=== PATIENT | female | born 1965 | race Caucasian/White ===

== ENCOUNTER 2020-09-10 02:30 | Observation (INO) | payer OTHER, SELFPAY ==
[~2020-09-10] VITALS: Ht 165.1 cm; Wt 70.8 kg
[2020-09-10 02:30] VITALS: BP_SYST 207
[2020-09-10] MEDS ORDERED: hydrALAZINE HCL 20 MG/ML VIAL IVP ONE (02:45)
[2020-09-10] MEDS ORDERED: MORPHINE 2 MG/ML INJ. SYRINGE ONE (02:54)
[2020-09-10] MEDS ORDERED: ONDANSETRON HCL 4 MG/2 ML VIAL ONE (02:56)
[2020-09-10] MEDS ORDERED: MORPHINE 4 MG INJ. 4 MG/ML VIAL IVP ONE (03:00)
[2020-09-10] MEDS ORDERED: KETOROLAC TROMETHAMINE 30 MG VIAL ONE (03:15)
[2020-09-10] MEDS ORDERED: KETOROLAC TROMETHAMINE 30 MG VIAL IVP ONE (03:15)
[2020-09-10] MEDS ORDERED: NACL 0.9% 1,000 ML IV ONE (03:15)
[2020-09-10] MEDS ORDERED: ONDANSETRON HCL 4 MG/2 ML VIAL IVP ONE (03:15)
[2020-09-10 03:20] LABS: BASOPHILS # (AUTO) 0.1 K/uL (0.0-0.2); BASOPHILS % (AUTO) 0.9 % (0.0-2.0); EOSINOPHILS # (AUTO) 0.1 K/uL (0.0-0.4); EOSINOPHILS % (AUTO) 1.6 % (0.0-4.0); HEMOGLOBIN 13.6 g/dL (12.0-16.0); LYMPHOCYTES # (AUTO) 1.8 K/uL (1.0-5.5); LYMPHOCYTES % (AUTO) 25.2 % (20.5-51.5); MEAN CORPUSCULAR HEMOGLOBIN 30 pg (27-31); MEAN CORPUSCULAR HGB CONC 33 % (32-36); MEAN CORPUSCULAR VOLUME 91 fL (79.0-98.0); MONOCYTES # (AUTO) 0.4 K/uL (0.0-1.0); MONOCYTES % (AUTO) 5.8 % (1.7-9.3); NEUTROPHILS # (AUTO) 4.7 K/uL (1.8-7.7); NEUTROPHILS % (AUTO) 66.5 % (40.0-70.0); PLATELET COUNT (AUTO) 278 K/uL (130-430); RED BLOOD CELL COUNT(AUTO) 4.51 MIL/uL (4.2-6.2); RED CELL DISTRIBUTION WIDTH 13.3 % (9.0-15.0); WHITE BLOOD COUNT (AUTO) 7.1 K/uL (4.8-10.8)
[2020-09-10 03:27] LABS: INR 0.9 (0.8-1.2); PROTHROMBIN TIME 9.3 SECS (9.5-12.5)
[2020-09-10 03:30] LABS: ALBUMIN 3.8 g/dL (3.4-4.8); CALCIUM 9.1 mg/dL (8.4-11.0); CREATININE 0.89 mg/dL (0.55-1.30); POTASSIUM 3.3 mmol/L (3.5-5.1); TOTAL BILIRUBIN 0.5 mg/dL (0.0-1.0)
[2020-09-10] MEDS ORDERED: ACETAMINOPHEN 325 MG TABLET PO PRN (05:00)
[2020-09-10] MEDS ORDERED: MORPHINE 2 MG/ML INJ. SYRINGE IVP PRN (05:00)
[2020-09-10] MEDS ORDERED: MORPHINE 4 MG INJ. 4 MG/ML VIAL IVP PRN (05:00)
[2020-09-10] MEDS ORDERED: NACL 0.9% 1,000 ML IV SCH (05:00)
[2020-09-10] MEDS ORDERED: ALBUTEROL SULFATE 0.083% 2.5 MG/3 ML VIAL.NEB INH PRN (05:00)
[2020-09-10] MEDS ORDERED: cefTRIAXone 1 GM IVPB PREMIX 50 ML IV SCH ×2 (05:00→09:00)
[2020-09-10] MEDS ORDERED: LOSA100T3 PO (07:36)
[2020-09-10 08:13] LABS: BILIRUBIN,URINE NEGATIVE (NEGATIVE); BLOOD, URINE NEGATIVE (NEGATIVE); COLOR,URINE YELLOW (YELLOW); GLUCOSE,URINE NEGATIVE (NEGATIVE); KETONES,URINE NEGATIVE (NEGATIVE); LEUKOCYTE ESTERASE ,URINE TRACE (NEGATIVE); NITRITE, URINE NEGATIVE (NEGATIVE); PROTEIN URINE NEGATIVE (NEGATIVE); UROBILINOGEN,URINE 0.2 (0.2-1.0)
[2020-09-10 08:17] LABS: CLARITY/URINE SLIGHTLY HAZY (CLEAR)
[2020-09-10] MEDS ORDERED: POTASSIUM CHLORIDE 10 MEQ TAB.PRT.SR PO ONE (08:30)
[2020-09-10 08:36] LABS: BACTERIA,URINE FEW /HPF (None Seen); MUCUS,URINE 1+ /LPF (None Seen)
[2020-09-10 08:39] VITALS: BP_SYST 132
[2020-09-10] MEDS ORDERED: TAMSULOSIN HCL 0.4 MG CAP PO ONE (09:00)
[2020-09-10] MEDS ORDERED: LOSARTAN POTASSIUM 50 MG TABLET (COZAAR) PO ONE (09:00)
[2020-09-10 09:09] VITALS: BP_SYST 132
[2020-09-10 11:04] VITALS: BP_SYST 129
[2020-09-10 11:05] VITALS: BP_SYST 129
[2020-09-10] MEDS ORDERED: CEPH250C PO (11:23)
[2020-09-10 11:26] LABS: BASOPHILS % (AUTO) 0.5 % (0.0-2.0); EOSINOPHILS % (AUTO) 0.2 % (0.0-4.0); HEMATOCRIT 36.1 % (36-48); HEMOGLOBIN 12.1 g/dL (12.0-16.0); LYMPHOCYTES # (AUTO) 1.2 K/uL (1.0-5.5); LYMPHOCYTES % (AUTO) 15.4 % (20.5-51.5); MEAN CORPUSCULAR HEMOGLOBIN 31 pg (27-31); MEAN CORPUSCULAR HGB CONC 33 % (32-36); MEAN CORPUSCULAR VOLUME 91 fL (79.0-98.0); MONOCYTES # (AUTO) 0.6 K/uL (0.0-1.0); MONOCYTES % (AUTO) 7.7 % (1.7-9.3); NEUTROPHILS # (AUTO) 6.1 K/uL (1.8-7.7); NEUTROPHILS % (AUTO) 76.2 % (40.0-70.0); PLATELET COUNT (AUTO) 251 K/uL (130-430); RED BLOOD CELL COUNT(AUTO) 3.95 MIL/uL (4.2-6.2); RED CELL DISTRIBUTION WIDTH 13.5 % (9.0-15.0)
[2020-09-10 11:57] LABS: CALCIUM 8.4 mg/dL (8.4-11.0); CREATININE 0.98 mg/dL (0.55-1.30); POTASSIUM 4.1 mmol/L (3.5-5.1); TOTAL BILIRUBIN 0.4 mg/dL (0.0-1.0)
[2020-09-11] MEDS ORDERED: LOSARTAN POTASSIUM 50 MG TABLET (COZAAR) PO SCH (09:00)
[2020-09-11] MEDS ORDERED: TAMSULOSIN HCL 0.4 MG CAP PO SCH (09:00)
== END 2020-09-10 13:10 | disposition home or self-care (01) ==
LOC: SED 02:30 → SMU 04:58 → INTOOBSV 04:58 → SMU 06:18
PROVIDERS: ADMIT Internal Medicine Hospice and Palliative Medicine; ATTEND Internal Medicine Hospice and Palliative Medicine
DX: N13.2 Hydronephrosis with renal and ureteral calculous obstruction (principal); Z20.822 Contact with and (suspected) exposure to COVID-19; I16.1 Hypertensive emergency; I10 Essential (primary) hypertension; Z87.442 Personal history of urinary calculi; Z79.899 Other long term (current) drug therapy
CPT/HCPCS: 36415; 74176; 76376; 80053; 81000; 82150; 83690; 85025; 85610; 87426; 96361; 96365; 96375; 99285; G0378; J0360; J0696; J1885; J2270; J2405